=== PATIENT | female | born 1995 | race Caucasian/White ===

== ENCOUNTER 2018-03-18 18:50 | Inpatient (IN) | payer BC ==
[2018-03-18 21:08] LABS: ADD MAN DIFF? NO
[2018-03-18 21:11] LABS: BASOPHILS % 0.3 % (0.0-2.0); EOSINOPHILS # 0.1 10^3/ul (0.0-0.5); EOSINOPHILS % 0.7 % (0.0-7.0); HEMATOCRIT 33.8 % (37.0-47.0); LYMPHOCYTES # 2.2 10^3/ul (0.8-2.9); LYMPHOCYTES % 16.8 % (15.0-51.0); MEAN CORPUSCULAR HEMOGLOBIN 27.6 pg (29.0-33.0); MEAN CORPUSCULAR HGB CONC 32.5 g/dl (32.0-37.0); MEAN CORPUSCULAR VOLUME 84.9 fl (82.0-101.0); MEAN PLATELET VOLUME 10.7 fl (7.4-10.4); MONOCYTE # 1.1 10^3/ul (0.3-0.9); MONOCYTES % 8.2 % (0.0-11.0); NEUTROPHIL # 9.7 10^3/ul (1.6-7.5); NEUTROPHILS % 72.5 % (39.0-77.0); PLATELET COUNT 255 10^3/UL (140-415); RED BLOOD COUNT 3.98 10^6/ul (4.20-5.40); RED CELL DISTRIBUTION WIDTH 13.3 % (11.5-14.5)
[2018-03-18 21:11] LABS: WHITE BLOOD COUNT 13.4 10^3/ul (4.8-10.8)
[2018-03-18 21:27] LABS: ADD UMIC YES; UR AMORPHOUS CRYSTAL FEW /HPF (NONE SEEN); UR ASCORBIC ACID NEGATIVE (NEGATIVE); UR BILIRUBIN (Dip) NEGATIVE (NEGATIVE); UR BLOOD (Dip) NEGATIVE (NEGATIVE); UR CLARITY SLIGHTLY CLOUDY (CLEAR); UR COLOR YELLOW (YELLOW); UR GLUCOSE (Dip) NEGATIVE (NEGATIVE); UR KETONES (Dip) NEGATIVE (NEGATIVE); UR LEUKOCYTE ESTERASE (Dip) TRACE Leu/ul (NEGATIVE); UR NITRITE (Dip) NEGATIVE (NEGATIVE); UR RBC 1 /HPF (0-5); UR SPECIFIC GRAVITY (Dip) 1.013 (1.003-1.030); UR SQUAMOUS EPITHELIAL CELL FEW /HPF (FEW); UR TOTAL PROTEIN (Dip) NEGATIVE (NEGATIVE); UR UROBILINOGEN (Dip) NEGATIVE (NEGATIVE); UR WBC 4 /HPF (0-5)
[2018-03-18 21:31] LABS: ALANINE AMINOTRANSFERASE 23 IU/L (13-69); ALBUMIN 3.5 g/dl (3.3-4.9); ALBUMIN/GLOBULIN RATIO 1.06; ALKALINE PHOSPHATASE 128 IU/L (42-121); ANION GAP 12 (8-16); ASPARTATE AMINO TRANSFERASE 22 IU/L (15-46); BILIRUBIN,INDIRECT 0.4 mg/dl (0-1.1); BILIRUBIN,TOTAL 0.4 mg/dl (0.2-1.3); BLOOD UREA NITROGEN 11 mg/dl (7-20); CALCIUM 8.9 mg/dl (8.4-10.2); CARBON DIOXIDE 19 mmol/L (21-31); CHLORIDE 108 mmol/L (97-110); CREATININE 0.53 mg/dl (0.44-1.00); GLUCOSE 81 mg/dl (70-220); POTASSIUM 3.8 mmol/L (3.5-5.1); SODIUM 135 mmol/L (135-144); TOTAL PROTEIN 6.8 g/dl (6.1-8.1); URIC ACID 4.2 mg/dl (3.1-7.9)
[2018-03-18 21:43] LABS: INR 0.93; PARTIAL THROMBOPLASTIN TIME 25.1 Sec (25.0-35.0); PROTIME 12.5 Sec (11.9-14.9)
[2018-03-18] MEDS ORDERED: OXYTOCIN 30 UNITS/LR 500 ML IV ×2 (22:30)
[2018-03-18] MEDS ORDERED: IBUPROFEN 600 MG TAB PO (22:30)
[2018-03-18] MEDS ORDERED: MISOPROSTOL 200 MCG TAB PR (22:30)
[2018-03-18] MEDS ORDERED: BUTORPHANOL 2 MG INJ IV (22:30)
[2018-03-18] MEDS ORDERED: LIDOCAINE 1% (MPF) 30 ML INJ INJ (22:30)
[2018-03-18] MEDS ORDERED: METHYLERGONOVINE 0.2 MG INJ IM (22:30)
[2018-03-18] MEDS ORDERED: CARBOPROST 250 MCG INJ IM (22:30)
[2018-03-18 23:00] LABS: AMPHETAMINE/METHAMPHETAMINE Negative (NEGATIVE); BARBITURATES Negative (NEGATIVE); BENZODIAZEPINES Negative (NEGATIVE); CANNABINOIDS Negative (NEGATIVE); OPIATES Negative (NEGATIVE)
[2018-03-18 23:12] LABS: COCAINE Negative (NEGATIVE)
[2018-03-19] MEDS: LACTATED RINGER'S 1,000 ML IV* ×5 (00:12→20:08)
[2018-03-19] MEDS: AMPICILLIN 2 GM/NS (PMX) 100 ML IV (00:28)
[2018-03-19] MEDS: MISOPROSTOL 25 MCG CAPSULE VAG (00:29)
[2018-03-19] MEDS: AMPICILLIN 1 GM/NS (PMX) 50 ML IV ×5 (03:58→20:08)
[2018-03-19] MEDS: MISOPROSTOL 25 MCG CAPSULE PO ×5 (03:59→20:06)
[2018-03-19] MEDS ORDERED: FENTAnyl 2MCG/ML-ROPIV 0.2% 100 ML (10:55)
[2018-03-19] MEDS: ONDANSETRON 4 MG INJ IV ×2 (12:12→19:15)
[2018-03-19] MEDS ORDERED: DIPHENHYDRAMINE 50 MG INJ IV (12:30)
[2018-03-19] MEDS ORDERED: ONDANSETRON 4 MG INJ IV (12:30)
[2018-03-19] MEDS ORDERED: NALOXONE (0.4 MG/ML) INJ IV (12:30)
[2018-03-19] MEDS: OXYTOCIN 30 UNITS/LR 500 ML IV (15:57)
[2018-03-19] MEDS: FENTAnyl 2MCG/ML-ROPIV 0.2% 100 ML BAG EPI (18:10)
[2018-03-19 19:08] LABS: RAPID PLASMA REAGIN NONREACTIVE (NR)
[2018-03-20] MEDS: MISOPROSTOL 25 MCG CAPSULE PO
[2018-03-20] MEDS: AMPICILLIN 1 GM/NS (PMX) 50 ML IV (00:17)
[2018-03-20] MEDS ORDERED: METHYLERGONOVINE 0.2 MG INJ IM (02:30)
[2018-03-20] MEDS ORDERED: ONDANSETRON 4 MG INJ IV (02:30)
[2018-03-20] MEDS ORDERED: CARBOPROST 250 MCG INJ IM (02:30)
[2018-03-20] MEDS ORDERED: OXYCODONE/ASPIRIN (4.88/325) TAB PO ×2 (02:30)
[2018-03-20] MEDS ORDERED: NACL 0.9% 3 ML SYG IV (02:30)
[2018-03-20] MEDS ORDERED: MISOPROSTOL 200 MCG TAB PR (02:30)
[2018-03-20] MEDS ORDERED: OXYTOCIN 30 UNITS/LR 500 ML IV (02:30)
[2018-03-20] MEDS: OXYTOCIN 30 UNITS/LR 500 ML IV ×2 (02:40→19:30)
[2018-03-20] MEDS: IBUPROFEN 600 MG TAB PO ×4 (05:49→21:58)
[2018-03-20] MEDS: LANOLIN 7 GM TUBE TOP (12:17)
[2018-03-20] MEDS: BENZOCAINE 20% 56 ML SPRAY TOP (12:17)
[2018-03-20] MEDS: WITCH HAZEL/GLYCERIN PAD PR (12:17)
[2018-03-21] MEDS: IBUPROFEN 600 MG TAB PO ×3 (06:09→18:15)
[2018-03-21 09:22] LABS: ADD MAN DIFF? NO
[2018-03-21 09:40] LABS: BASOPHIL # 0.1 10^3/ul (0.0-0.1); BASOPHILS % 0.5 % (0.0-2.0); EOSINOPHILS # 0.2 10^3/ul (0.0-0.5); EOSINOPHILS % 1.2 % (0.0-7.0); HEMATOCRIT 30.4 % (37.0-47.0); HEMOGLOBIN 9.9 g/dl (12.0-16.0); LYMPHOCYTES # 2.7 10^3/ul (0.8-2.9); LYMPHOCYTES % 21.2 % (15.0-51.0); MEAN CORPUSCULAR HEMOGLOBIN 28.6 pg (29.0-33.0); MEAN CORPUSCULAR HGB CONC 32.6 g/dl (32.0-37.0); MEAN CORPUSCULAR VOLUME 87.9 fl (82.0-101.0); MONOCYTE # 1.1 10^3/ul (0.3-0.9); MONOCYTES % 8.7 % (0.0-11.0); NEUTROPHIL # 8.6 10^3/ul (1.6-7.5); NEUTROPHILS % 66.5 % (39.0-77.0); PLATELET COUNT 225 10^3/UL (140-415); RED BLOOD COUNT 3.46 10^6/ul (4.20-5.40); RED CELL DISTRIBUTION WIDTH 13.7 % (11.5-14.5)
[2018-03-21 09:40] LABS: WHITE BLOOD COUNT 12.9 10^3/ul (4.8-10.8)
[2018-03-21 16:36] LABS: HEPATITIS B SURFACE ANTIGEN NEGATIVE (NEGATIVE)
[2018-03-22] MEDS: IBUPROFEN 600 MG TAB PO ×3 (00:22→12:19)
== END 2018-03-22 16:10 | disposition home or self-care (01) | DRG 775 ==
LOC: OBT 18:50 → L-D 03-19 08:48 → PP1 03-20 04:26 → L-D 18:52 → OBT 21:45 → L-D 21:45
PROC: 10E0XZZ Delivery of Products of Conception, External Approach (ICD-10-PCS; principal; 2018-03-19)
PROC: 0UQGXZZ Repair Vagina, External Approach (ICD-10-PCS; 2018-03-19)
PROC: 3E033VJ Introduction of Other Hormone into Peripheral Vein, Percutaneous Approach (ICD-10-PCS; 2018-03-19)
DX: O48.0 Post-term pregnancy (principal); O71.4 Obstetric high vaginal laceration alone; Z3A.40 40 weeks gestation of pregnancy; Z37.0 Single live birth
CPT/HCPCS: 62319; 76815; 80053; 80307; 81001; 84560; 85025; 85384; 85610; 85730; 86592; 86850; 86900; 86901; 87340